=== PATIENT | female | born 1945 | race Two or more races ===

== ENCOUNTER 2018-03-19 09:04 | Outpatient (CLI) | payer OTHER ==
[~2018-03-19 09:04] MED LIST: PRISTIQ
== END 2018-03-19 09:19 | disposition home or self-care (01) ==
LOC: TOM 09:04
DX: I71.8 Aortic aneurysm of unspecified site, ruptured (principal); I71.00 Dissection of unspecified site of aorta
CPT/HCPCS: 71275; 74175; Q9965

== ENCOUNTER 2018-08-05 09:31 | Outpatient (CLI) | payer OTHER | END 2018-08-05 09:34 | disposition home or self-care (01) | LOC: RAD 09:31 | DX: J34.2 Deviated nasal septum (principal) ==

== ENCOUNTER 2020-08-25 09:55 | Outpatient (CLI) | payer OTHER | END 2020-08-25 10:11 | disposition home or self-care (01) | LOC: MAMO-SONO 09:55 | PROVIDERS: ATTEND Internal Medicine Cardiovascular Disease | DX: Z12.31 Encounter for screening mammogram for malignant neoplasm of breast (principal); N63.11 Unspecified lump in the right breast, upper outer quadrant; N64.59 Other signs and symptoms in breast ==

== ENCOUNTER → 2021-09-13 15:08 | Outpatient (CLI) | payer OTHER | END | disposition home or self-care (01) | LOC: EKG 15:08 | PROVIDERS: ATTEND Surgery Plastic and Reconstructive Surgery | DX: I10 Essential (primary) hypertension (principal); Z01.810 Encounter for preprocedural cardiovascular examination ==

== ENCOUNTER 2021-09-13 15:42 | Outpatient (CLI) | payer OTHER | END 2021-09-13 15:50 | disposition home or self-care (01) | LOC: RAD 15:42 | PROVIDERS: ATTEND Surgery Plastic and Reconstructive Surgery | DX: I10 Essential (primary) hypertension (principal) ==

== ENCOUNTER 2021-09-16 10:30 | Outpatient (CLI) | payer OTHER | END 2021-09-16 10:36 | disposition home or self-care (01) | LOC: RAD 10:30 | PROVIDERS: ATTEND Internal Medicine Cardiovascular Disease | DX: M25.512 Pain in left shoulder (principal); M25.511 Pain in right shoulder ==

== ENCOUNTER 2022-04-20 09:24 | Outpatient (CLI) | payer OTHER | END 2022-04-20 09:28 | disposition home or self-care (01) | LOC: MAMO-SONO 09:24 | PROVIDERS: ATTEND Internal Medicine Cardiovascular Disease | DX: Z12.31 Encounter for screening mammogram for malignant neoplasm of breast (principal); R41.2 Retrograde amnesia; N63.11 Unspecified lump in the right breast, upper outer quadrant ==

== ENCOUNTER → 2022-04-20 11:19 | Outpatient (CLI) | payer OTHER | END | disposition home or self-care (01) | LOC: NUCLEAR 11:19 | PROVIDERS: ATTEND Internal Medicine Cardiovascular Disease | DX: M81.0 Age-related osteoporosis without current pathological fracture (principal); E55.9 Vitamin D deficiency, unspecified ==

== ENCOUNTER 2022-05-30 13:37 | Outpatient (CLI) | payer OTHER | END 2022-05-30 13:43 | disposition home or self-care (01) | LOC: LAB 13:37 | PROVIDERS: ATTEND Radiology Diagnostic Radiology | DX: R51.9 Headache, unspecified (principal) ==

== ENCOUNTER 2022-06-01 11:07 | Outpatient (CLI) | payer OTHER | END 2022-06-01 13:42 | disposition home or self-care (01) | LOC: MRI 11:07 | PROVIDERS: ATTEND Internal Medicine Cardiovascular Disease | DX: R51.9 Headache, unspecified (principal) | CPT/HCPCS: 70553; Q9965 ==

== ENCOUNTER 2023-08-15 09:38 | Outpatient (CLI) | payer OTHER | END 2023-08-15 09:45 | disposition home or self-care (01) | LOC: MRI 09:38 | PROVIDERS: ATTEND Psychiatry & Neurology Clinical Neurophysiology | DX: G31.84 Mild cognitive impairment of uncertain or unknown etiology (principal) | CPT/HCPCS: 70551 ==

== ENCOUNTER 2023-10-10 11:36 | Outpatient (CLI) | payer OTHER | END 2023-10-10 11:43 | disposition home or self-care (01) | LOC: MAMO-SONO 11:36 | PROVIDERS: ATTEND Student in an Organized Health Care Education/Training Program | DX: N64.4 Mastodynia (principal); Z12.31 Encounter for screening mammogram for malignant neoplasm of breast ==

== ENCOUNTER 2024-12-31 09:12 | Outpatient (CLI) | payer OTHER | END 2024-12-31 09:18 | disposition home or self-care (01) | LOC: SONOGRAMA 09:12 | PROVIDERS: ATTEND Orthopaedic Surgery | DX: M75.111 Incomplete rotator cuff tear or rupture of right shoulder, not specified as traumatic (principal) ==

== ENCOUNTER 2025-04-20 11:07 | Outpatient (CLI) | payer OTHER | END 2025-04-20 11:12 | disposition home or self-care (01) | LOC: SONOGRAMA 11:07 | PROVIDERS: ATTEND General Practice | DX: M25.511 Pain in right shoulder (principal); M25.512 Pain in left shoulder; S49.90XA Unspecified injury of shoulder and upper arm, unspecified arm, initial encounter ==

== ENCOUNTER 2025-04-27 12:34 | Outpatient (CLI) | payer OTHER | END 2025-04-27 12:42 | disposition home or self-care (01) | LOC: RAD 12:34 | PROVIDERS: ATTEND General Practice | DX: M54.6 Pain in thoracic spine (principal); M81.0 Age-related osteoporosis without current pathological fracture ==

== ENCOUNTER 2025-05-20 09:23 | Emergency (ER) | payer OTHER ==
[~2025-05-20] VITALS: Ht 157.5 cm; Wt 63.5 kg
[2025-05-20] MEDS ORDERED: BUPROPION XL300 MG (09:37)
[2025-05-20] MEDS ORDERED: KETOROLAC TROMETHAMINE 30 MG VIAL IM STA (09:51)
== END 2025-05-20 14:22 | disposition home or self-care (01) ==
LOC: ER 09:23
DX: S80.01XA Contusion of right knee, initial encounter (principal); W19.XXXA Unspecified fall, initial encounter; Y93.89 Activity, other specified; Y92.89 Other specified places as the place of occurrence of the external cause; Y99.9 Unspecified external cause status; M17.11 Unilateral primary osteoarthritis, right knee; F32.A Depression, unspecified
CPT/HCPCS: 73560; 96372; 99283; J1885

== ENCOUNTER 2025-06-22 08:25 | Outpatient (CLI) | payer OTHER ==
[~2025-06-22 08:25] MED LIST changes: +BUPROPION XL300 MG
== END 2025-06-22 08:30 | disposition home or self-care (01) ==
LOC: SONOGRAMA 08:25
PROVIDERS: ATTEND Internal Medicine Gastroenterology
DX: R16.0 Hepatomegaly, not elsewhere classified (principal)